=== PATIENT | male | born 1995 | race Caucasian/White ===

== ENCOUNTER → 2016-12-20 | Outpatient (CLI) | payer OTHER ==
--- NOTE | 2016-12-23 15:23 | CPEEG ---
[f rep st] ELECTROENCEPHALOGRAM DATE OF STUDY: 12/20/2016 DATE OF INTERPRETATION: 12/23/2016 INTERPRETATION: Normal EEG during wakefulness and sleep. There were no potentially epileptogenic ab normalities present during the recording. REPORT: This EEG contains 10 Hz alpha activity to the posterior head regions. There was no abnormal activation at rest, during photic stimulation, or hyperventilation. The patient became drowsy and f ell asleep during the study. There was no abnormal activation during drowsiness, sleep, or during ti mes of arousal. Copy requested to: KWAN LOGAN /[id number]/MODL
== END ==
LOC: FCPNEURO 13:05
PROVIDERS: ATTEND Psychiatry & Neurology Clinical Neurophysiology
DX: R56.9 Unspecified convulsions (principal)

== ENCOUNTER → 2017-01-17 | Outpatient (CLI) | payer OTHER ==
--- NOTE | 2017-01-20 13:51 | CPEEG ---
DATE OF STUDY: 01/17/2017 DATE OF INTERPRETATION: 01/20/2017. INTERPRETATION: Normal EEG during wakefulness and sleep. There were no potentially epileptogenic abnormalities present during the awake or sleep recordings. REPORT: This EEG contains 10 hertz alpha activity to the posterior head regions. There was no abnormal activation at rest, during hyperventilation, or photic stimulation. The patient became drowsy and fell asleep during the study. There was no observation during drowsiness, sleep or during times of arousal. Copy requested to: Godfrey Newby MD /[id number]/MODL MTDD
== END ==
LOC: FCPNEURO 14:27
PROVIDERS: ATTEND Psychiatry & Neurology Clinical Neurophysiology
DX: R56.9 Unspecified convulsions (principal); G47.33 Obstructive sleep apnea (adult) (pediatric); Z86.69 Personal history of other diseases of the nervous system and sense organs

== ENCOUNTER → 2017-05-04 | Outpatient (CLI) | payer OTHER | LOC: BMCIMAGING 16:33 | PROVIDERS: ATTEND Family Medicine | DX: M25.511 Pain in right shoulder (principal); M25.521 Pain in right elbow ==

== ENCOUNTER 2017-10-31 17:16 | Emergency (ER) | payer OTHER ==
[2017-10-31 17:21] VITALS: RESP 18; TEMP 97.7
--- NOTE | 2017-10-31 17:29 | EDPHY ---
H & P Stated Complaint: witness sz - Personal History Current Tetanus/Diphtheria Vaccine: Yes Current Tetanus Diphtheria and Acellular Pertussis (TDAP): Yes Tetanus Vaccine Date: 2008 - Medical/Surgical History Hx Asthma: No Hx Chronic Respiratory Disease: No Hx Diabetes: No Hx Cardiac Disease: No Hx Renal Disease: No Hx Cirrhosis: No Hx Alcoholism: No Hx HIV/AIDS: No Hx Splenectomy or Spleen Trauma: No Other PMH: BIPOLAR, DEPRESSION, RT HAND SURGERY, NEUROPATHY, idiopathic sz. - Social History Smoking Status: Former smoker Time Seen by Provider: 10/31/17 17:20 HPI/ROS: CHIEF COMPLAINT: Seizure-like activity HISTORY OF PRESENT ILLNESS: 22-year-old male arrives via ambulance after witnessed seizure like activity. He has history of bipolar disorder, depression , has been evaluated for seizures in the past told that he has "idiopathic seizures ". Denies antecedent symptoms such as headache, chest pain, dyspnea Denies alcohol or drug use. Denies complaints of pain or discomfort. Denies suicidal homicidal ideation PRIMARY CARE PROVIDER: REVIEW OF SYSTEMS: A ten point review of systems was performed and is negative with the exception of the items mentioned in the HPI PAST MEDICAL & SURGICAL HISTORY: Depression. Bipolar disorder. SOCIAL HISTORY: Denies alcohol or drug use. PHYSICAL EXAM (Prior to examination, patient consented to physical exam, hands were washed and my usual and customary physical exam procedures followed) 1) GENERAL: Well-developed, well-nourished, alert and oriented. Appears to be in no acute distress. 2) HEAD: Normocephalic, atraumatic 3) HEENT: Pupils equal, round, reactive to light bilaterally. Sclera anicteric. Nasopharynx, oropharynx, clear, no lesions. Right lateral tongue abrasion no bleeding Ears bilaterally with normal tympanic membranes. 4) NECK: Full range of motion, no meningeal signs. 5) LUNGS: Clear auscultation bilaterally, no wheezes, no rhonchi, no retractions. 6) HEART: Regular rate and rhythm, no murmur, no heave, no gallop. 7) ABDOMEN: No urinary or fecal incontinence on exam. No guarding, no rebound , no focal tenderness, negative McBurney's, negative Goldberg's, negative Rovsing' s, negative peritoneal sign, 8) MUSCULOSKELETAL: Moving all extremities, no focal areas of tenderness, no obvious trauma. No peripheral edema or discoloration. 9) BACK: No CVA tenderness, no midline vertebral tenderness, no fluctuance, no step-off, no obvious trauma, no visual or palpable abnormality. 10) SKIN: No rash, no petechiae. 11) Psychiatric: Patient is oriented X 3, there is no agitation. DIFFERENTIAL DIAGNOSIS: In no particular include but limited to epilepsy, non therapeutic lithium, syncope, cardiac arrhythmia, intracranial hemorrhage (Barb Lopez) Constitutional: Initial Vital Signs Temperature (C) 36.5 C 10/31/17 17:19 Heart Rate 102 H 10/31/17 17:19 Respiratory Rate 18 10/31/17 17:19 Blood Pressure 138/88 H 10/31/17 17:19 O2 Sat (%) 93 10/31/17 17:19 O2 Delivery Mode Room Air Allergies/Adverse Reactions: No Known Allergies Allergy (Verified 06/11/16 18:14) Home Medications: Medication Instructions Recorded Strandquist Carbonate 600 mg PO DAILY 10/23/13 Sertraline HCl [Zoloft 100mg (RX)] 200 mg PO DAILY 10/23/13 Medical Decision Making - Diagnostics Imaging Results: Imaging Impressions Head CT 10/31/17 17:47 Impression: Nothing acute intracranially. Findings and recommendations discussed with Barb Lopez at 1822 hour, . Final report concurs with initial preliminary interpretation. Images reviewed myself (Barb Lopez) ED Course/Re-evaluation: 5:27 p.m.: Old medical records reviewed including normal EEG dated January 2017, CT head performed August 2016 after seizure-like activity. He is currently on daily lithium for bipolar disorder, will obtain laboratory studies, lithium level, EKG. Care of patient under supervision of secondary supervising physician Dr Rivera. He has a noted left occipital hematoma , positive loss of consciousness, headache which did not precede the incident. He is currently answering questions appropriately. Head CT ordered in this patient for trauma for the following indication: severe headache, loss of consciousness and visible head trauma. 705 p.m.: Re-evaluation, patient is awake alert oriented person place time events, not postictal. I reviewed the patient his imaging results, laboratory results. He has previously seen Dr. Augustus Chapin Neurology, not currently on anti epileptic specific medications. Discussed with him his sub therapeutic lithium level. Does note that he missed a dose earlier today. At this time I do not think that hospitalization is indicated. We discussed starting the patient on antiepileptic medication at this time. States that this is the 1st seizure he has had in quite some time. Will hold on antiepileptic medication at this time however he will need follow-up with Dr. Augustus Chapin his neurologist to discuss this further. In the meantime, he has been provided with my usual and customary seizure precautions and instructions, including no driving, operating machinery and similar. Care of patient under supervision of secondary supervising physician Dr Rivera with whom I discussed case. (Barb Lopez) Other Provider: PHYSICIAN DOCUMENTATION: The patient was evaluated and managed by the Physician Burglar Alarm Mechanic and myself. I have reviewed the chart and agree with the findings and plan of care as documented. In addition, I examined the patient myself at 1915. History confirmed as seizure, currently has a headache. Physical findings as follows: Alert and fluent speech. Tylenol for headache, database reviewed, warned no driving, patient says he will follow up with his neurologist Dr. Chapin next week. I am the secondary supervising physician. (Manish Rivera) - Data Points Laboratory Results: Laboratory Results 10/31/17 17:20 10/31/17 17:20 10/31/17 10/31/17 17:20 17:20 WBC 11.89 10^3/uL H 10^3/uL (3.80-9.50) RBC 4.57 10^6/uL 10^6/uL (4.40-6.38) Hgb 15.9 g/dL g/dL (13.7-17.5) Hct 46.4 % % (40.0-51.0) MCV 101.5 fL H fL (81.5-99.8) MCH 34.8 pg H pg (27.9-34.1) MCHC 34.3 g/dL g/dL (32.4-36.7) RDW 11.6 % % (11.5-15.2) Plt Count 267 10^3/uL 10^3/uL (150-400) MPV 10.2 fL fL (8.7-11.7) Neut % (Auto) 54.0 % % (39.3-74.2) Lymph % (Auto) 32.8 % % (15.0-45.0) [place] % (Auto) 9.7 % % (4.5-13.0) Eos % (Auto) 2.4 % % (0.6-7.6) Baso % (Auto) 0.8 % % (0.3-1.7) Nucleat RBC Rel Count 0.0 % % (0.0-0.2) Absolute Neuts (auto) 6.44 10^3/uL 10^3/uL (1.70-6.50) Absolute Lymphs (auto) 3.90 10^3/uL H 10^3/uL (1.00-3.00) Absolute Monos (auto) 1.15 10^3/uL H 10^3/uL (0.30-0.80) Absolute Eos (auto) 0.28 10^3/uL 10^3/uL (0.03-0.40) Absolute Basos (auto) 0.09 10^3/uL 10^3/uL (0.02-0.10) Absolute Nucleated RBC 0.00 10^3/uL 10^3/uL (0-0.01) Immature Gran % 0.3 % % (0.0-1.1) Immature Gran # 0.03 10^3/uL 10^3/uL (0.00-0.10) Sodium 142 mEq/L mEq/L (134-144) Potassium 3.8 mEq/L mEq/L (3.5-5.2) Chloride 98 mEq/L mEq/L (97-110) Carbon Dioxide 11 mEq/l L mEq/l (22-31) Anion Gap 33 mEq/L H mEq/L (8-16) BUN 8 mg/dL mg/dL (7-23) Creatinine 1.1 mg/dL mg/dL (0.7-1.3) Estimated GFR > 60 Glucose 95 mg/dL mg/dL (70-100) Calcium 10.2 mg/dL mg/dL (8.5-10.4) Strandquist 0.3 mEq/L L mEq/L (0.6-1.2) Ethyl Alcohol < 10 mg/dL mg/dL (0-10) Departure - Departure Disposition: Home, Routine, Self-Care Clinical Impression: Seizure Condition: Good Instructions: Epilepsy (ED) Additional Instructions: You may have had a seizure. Until your cleared by the your neurologist do not: Drive, swim alone, climb to heights, operate machinery Referrals: Augustus Chapin MD [Medical Doctor] - 2-3 days, call for appt.
[2017-10-31 17:36] LABS: % IMMATURE GRANULYOCYTES 0.3 % (0.0-1.1); ABSOLUTE IMMATURE GRANULOCYTES 0.03 10^3/uL (0.00-0.10); ADD DIFF? NO; ADD MORPH? NO; ADD SCAN? NO; ATYPICAL LYMPHOCYTE FLAG 10 (0-99); FRAGMENT RBC FLAG 10 (0-99); HEMATOCRIT 46.4 % (40.0-51.0); HEMOGLOBIN 15.9 g/dL (13.7-17.5); LEFT SHIFT FLG 0 (0-99); LIPEMIA HEMOLYSIS FLAG 90 (0-99); MEAN CELL HEMOGLOBIN 34.8 pg (27.9-34.1); MEAN CELL HEMOGLOBIN CONCENTR. 34.3 g/dL (32.4-36.7); MEAN CELL VOLUME 101.5 fL (81.5-99.8); MEAN PLATELET VOLUME 10.2 fL (8.7-11.7); PLATELET CLUMPS FLAG 10 (0-99); PLATELET COUNT 267 10^3/uL (150-400); RED BLOOD CELL COUNT 4.57 10^6/uL (4.40-6.38); RED CELL DISTRIBUTION WIDTH 11.6 % (11.5-15.2)
[2017-10-31 17:59] LABS: ANION GAP 33 mEq/L (8-16); CALCIUM 10.2 mg/dL (8.5-10.4); CARBON DIOXIDE 11 mEq/l (22-31); CHLORIDE 98 mEq/L (97-110); CREATININE 1.1 mg/dL (0.7-1.3); GLOMERULAR FILTRATION RATE > 60; GLUCOSE 95 mg/dL (70-100); POTASSIUM 3.8 mEq/L (3.5-5.2); SODIUM 142 mEq/L (134-144)
[2017-10-31 18:08] LABS: ETHANOL SERUM < 10 mg/dL (0-10); LITHIUM 0.3 mEq/L (0.6-1.2)
[2017-10-31] MEDS ORDERED: ACETAMINOPHEN 500 MG TAB ONE (19:17)
[2017-10-31] MEDS ORDERED: ACETAMINOPHEN 500 MG TAB PO ONE (19:17)
[2017-10-31 19:23] VITALS: BP 129/70; PULSE 69; O2SAT 95
== END 2017-10-31 19:24 | disposition home or self-care (01) ==
LOC: EDUNIT#
DX: R56.9 Unspecified convulsions (principal); Z87.891 Personal history of nicotine dependence
CPT/HCPCS: G0480